=== PATIENT | male | born 1940 | race Caucasian/White ===

== ENCOUNTER 2025-02-22 11:05 | Outpatient (CLI) | payer OTHER, SELFPAY ==
--- NOTE | 2025-02-22 11:09 | FL_ITS ---
WS: [id number] Modified barium swallow, 02/22/2025 Clinical Data: Other dysphagia Comparison: None. Fluoroscopy time: 3min [id number] # of spot films: 0 Findings: The patient exhibited premature oral spillage to the piriforms. The patient also had significant residual with regular items which cleared with multiple swallows. Pharyngeal motion also was decreased. There was penetration with thin liquids but no aspiration. The patient did propel the barium tablet from the oropharynx through the hypopharynx into the esophagus and then the stomach. FL/FL barium swallow modifd [id number] Impression: 1. Significant residual with irregular food items which would clear with multip le swallows. 2. Decreased pharyngeal motion. 3. Penetration but no aspiration with thin liquids.
== END 2025-02-22 11:06 | disposition home or self-care (01) ==
LOC: RAD 11:07
PROVIDERS: PCP Nurse Practitioner Family; Visit Provider Nurse Practitioner Family
DX: R13.19 Other dysphagia (principal)
CPT/HCPCS: 74230; 92611

== ENCOUNTER 2025-02-24 06:30 | Outpatient (RCR) | payer OTHER, SELFPAY | END 2025-03-26 23:59 | disposition home or self-care (01) | LOC: WST 06:30 | PROVIDERS: PCP Nurse Practitioner Family; Visit Provider Nurse Practitioner Family | DX: R13.10 Dysphagia, unspecified (principal) | CPT/HCPCS: 92526; 92610 ==